=== PATIENT | female | born 1950 | race Caucasian/White ===

== ENCOUNTER 2020-06-07 18:36 | Inpatient (IN) | payer MEDICARE, MEDICAID ==
[2020-06-07 19:29] LABS: #Basophils 0.1 thou/uL (0.0-0.2); #Eosinphils 0.2 thou/uL (0.0-0.7); #Lymphocytes 2.4 thou/uL (1.20-3.40); #Monocytes 1.4 thou/uL (0.11-0.59); #Neutrophils 9.7 thou/uL (1.40-6.50); %Basophils 0.8 % (0.0-1.0); %Eosinophils 1.8 % (0.0-10.0); %Lymphocytes 17.4 % (21.0-51.0); %Monocytes 9.8 % (0.0-10.0); %Neutrophils 70.3 % (42.0-75.0); Mean Corpuscular HGB CONC 32.8 g/dL (32.0-36.0); Mean Corpuscular Hemoglobin 31.8 pg (27.0-31.0); Mean Platelet Volume 8.8 fL (7.4-10.4); Platelet Count 221 thou/uL (130-400); RBC Distribution Width 12.9 % (11.5-14.5); Red Blood Cell (RBC) Count 4.09 mill/uL (4.20-5.40); White Blood Cell (WBC) Count 13.7 thou/uL (4.8-10.8)
[2020-06-07 19:53] LABS: ALT (SGPT) 8 U/L (8-55); AST (SGOT) 10 U/L (5-34); Alkaline Phosphatase 102 U/L (40-110); Anion Gap 13 mmol/L (10-20); BUN (Urea Nitrogen) 14 mg/dL (9.8-20.1); Bilirubin, Total 0.6 mg/dL (0.2-1.2); Calc. Creatinine Clearance 0 mL/min (70-130); Calcium 8.8 mg/dL (7.8-10.44); Carbon Dioxide 26 mmol/L (23-31); Chloride 108 mmol/L (98-107); Estimated GFR-MDRD 84; Globulin 3.7 g/dL (2.4-3.5); Glucose 263 mg/dL (83-110); Potassium 4.2 mmol/L (3.5-5.1); Protein, Total 6.7 g/dL (6.0-8.3); Sodium 143 mmol/L (136-145)
[2020-06-07] MEDS ORDERED: Morphine 4 MG/ML VIAL ONE (19:55)
[2020-06-07] MEDS ORDERED: Ondansetron PF 4 MG/2 ML Vial ONE (19:55)
--- NOTE | 2020-06-07 20:40 | RAD ---
PORTABLE CHEST: 06/07/20 PROVIDED CLINICAL HISTORY: Fall, COVID positive. COMPARISON: 05/12/20. FINDINGS: Evaluation is limited by patient body habitus. The lungs are hypoinflated. Scattered areas of parenchymal opacity are redemonstrated. No pleural flu id or pneumothorax evident. IMPRESSION: Hypoinflated exam. POS: JETT
--- NOTE | 2020-06-07 20:50 | RAD ---
PELVIC RADIOGRAPH: 06/07/20 PROVIDED CLINICAL HISTORY: Pain status post fall. FINDINGS: There is a comminuted, markedly displaced and apex laterally angulated subtrochanteric fracture of th e right proximal femur. No additional fracture is evident. Alignment appears otherwise unremarkable. Conspicuous rectal fecal retention is noted. Multiple age indeterminate compression deformities are seen involving the lumbar spine. IMPRESSION: Comminuted, displaced and angulated subtrochanteric right proximal femoral fracture. POS: JETT
[2020-06-07 22:06] LABS: Bacteria/HPF 4+ HPF (None Seen); Bilirubin Negative (Negative); Blood, Urine Negative (Negative); Clarity Turbid (Clear); Glucose, Urine (Dipstick) Greater than 1000 mg/dL (Negative); Ketone, Urine Negative (Negative); Leukocyte 250 Leu/uL (Negative); Nitrite 1+ (Negative); Protein, Urine (Dipstick) 20 mg/dL (Neg-Trace); RBC/HPF 0-3 HPF (0-3); Specific Gravity, Urine 1.028 (1.002-1.036); Squamous Epithelial 0-3 HPF (0-3)
--- NOTE | 2020-06-07 22:34 | HP ---
This is Orestes Pineda PA-C dictating a report for Tyrel Garcia MD. REQUESTING PHYSICIAN: Babar Marrufo DO. CONSULTATION: Orthopedics, Babar Bee MD HISTORY OF PRESENT ILLNESS: The patient is a 70-year-old woman who was brought from the [facility] after reportedly having a ground level fall on the . She underwent evaluation for fracture at that time and her x-rays were reportedly negative. The daughter has been visiting her over the last 2 days and noticed that she is nonambulatory and she complains a lot of hip pain. The nurse was able to get an x-ray today and it showed a displaced proximal femur fracture, at which time we were asked to evaluate the patient for admission and obtain Orthopedic consultation. So, the daughter reports that she is in her otherwise regular state of health. Her mentation due to her advanced dementia, which she has had since age 55, has left her alert A and O x1. She will follow very basic commands and she is a community shuffler with a walker. ALLERGIES: NONE. CURRENT MEDICATIONS: The daughter reports that the residential has the list of her medicines. PAST MEDICAL HISTORY: The daughter believes she has diabetes, hypertension, and coronary artery disease with no reported blood thinner use. PAST SURGICAL HISTORY: Hysterectomy and knee surgery. SOCIAL HISTORY: Patient resides at the [facility]. There is no history of drug, tobacco, or alcohol use. REVIEW OF SYSTEMS: A 10-point review of systems is negative as otherwise stated. PHYSICAL EXAMINATION: VITAL SIGNS: Blood pressure 124/66, heart rate 85, respirations 19, oxygen saturations 96% on room air, temperature is 97.5. GENERAL: The patient is resting in bed. She is asleep. The daughter reports that she has just been given pain medication. She does open her eyes to loud verbal stimuli, but does not follow my commands. HEENT: Unremarkable. Her head is normocephalic and atraumatic. Eyes are PERRLA bilaterally. The patient does not follow commands to check extraocular motion. Her nose is atraumatic with discharge. No ears are atraumatic with discharge. Oropharynx is clear. NECK: Nontender to the midline. Trachea is midline. CHEST: Clear to auscultation with moderate inspiratory and expiratory effort. HEART: Regular rate and rhythm. ABDOMEN: Soft, flat, nontender with active bowel sounds. PELVIC: Stable with tenderness to palpation to the right hip consistent with her hip fracture. EXTREMITIES: Neurovascularly intact x4. BACK: By report is atraumatic and nontender. LABORATORY FINDINGS: WBC 13.7, hemoglobin 13.0, hematocrit 39.7, platelets 221. Sodium 143, potassium 4.2, chloride 108, CO2 of 26, BUN 14, creatinine 0.69, glucose 263. LFTs are unremarkable. Urinalysis is pending. Coags are pending. RADIOGRAPHS: AP chest x-ray shows no gross abnormality. The exam is done with hypoinflated lungs. AP pelvis shows a markedly displaced angulated comminuted subtrochanteric right proximal femur fracture. ASSESSMENT/PLAN: 1. Status post ground level fall with remote presentation. 2. Right subtrochanteric proximal femur fracture. 3. History of dementia and suspected diabetes, hypertension, and hyperlipidemia. PLAN: To admit the patient to the surgical floor. She will be made n.p.o. after midnight. We will do pulmonary toilet, gastritis and mechanical VTE prophylaxis. Postoperatively, we will begin working with Physical Therapy and evaluate her for ambulation and we will discuss placement at that time. The Emergency Department did notify Dr. Bee and the evaluation, examination, laboratory and radiographic findings will be discussed with Dr. Garcia after this dictation. Job ID: [id number]
[2020-06-08 01:23] VITALS: BMI 36.3
[2020-06-08] MEDS ORDERED: Sodium Chloride 0.9% 1,000 ML IV SCH (01:51)
[2020-06-08] MEDS ORDERED: Dextrose 50% Abboject 50 ML SYRINGE SLOW IVP PRN (01:51)
[2020-06-08] MEDS ORDERED: Ondansetron PF 4 MG/2 ML Vial IVP PRN (01:51)
[2020-06-08] MEDS ORDERED: Dextrose 5% in Water 1,000 ML IV PRN (01:51)
[2020-06-08] MEDS ORDERED: Ondansetron ODT 4 MG TAB PO PRN (01:51)
[2020-06-08] MEDS: cefTRIAXone\\ROCEPHIN 1 GM in Sodium Chloride 0.9% 100 ML IVPB SCH (03:59)
[2020-06-08] MEDS: Morphine 2 MG/ML VIAL SLOW IVP PRN (05:52)
[2020-06-08 05:58] LABS: #Basophils 0.1 thou/uL (0.0-0.2); #Eosinphils 0.5 thou/uL (0.0-0.7); #Lymphocytes 2.9 thou/uL (1.20-3.40); #Monocytes 1.3 thou/uL (0.11-0.59); #Neutrophils 7.7 thou/uL (1.40-6.50); %Basophils 0.8 % (0.0-1.0); %Eosinophils 4.2 % (0.0-10.0); %Lymphocytes 23.4 % (21.0-51.0); %Monocytes 10.2 % (0.0-10.0); %Neutrophils 61.4 % (42.0-75.0); Mean Corpuscular HGB CONC 32.1 g/dL (32.0-36.0); Mean Corpuscular Hemoglobin 31.9 pg (27.0-31.0); Mean Corpuscular Volume 99.2 fL (78.0-98.0); Mean Platelet Volume 9.1 fL (7.4-10.4); Platelet Count 184 thou/uL (130-400); Red Blood Cell (RBC) Count 3.78 mill/uL (4.20-5.40); White Blood Cell (WBC) Count 12.6 thou/uL (4.8-10.8)
[2020-06-08 06:02] LABS: INR-International Normal Ratio 1.2; PTT 25.9 sec (22.9-36.1); Prothrombin Time 15.1 sec (12.0-14.7)
[2020-06-08 06:16] LABS: Anion Gap 13 mmol/L (10-20); BUN (Urea Nitrogen) 13 mg/dL (9.8-20.1); Calc. Creatinine Clearance 126 mL/min (70-130); Calcium 8.4 mg/dL (7.8-10.44); Carbon Dioxide 26 mmol/L (23-31); Chloride 109 mmol/L (98-107); Estimated GFR-MDRD 88; Glucose 164 mg/dL (83-110); Potassium 4.1 mmol/L (3.5-5.1); Sodium 144 mmol/L (136-145)
[2020-06-08] MEDS ORDERED: CEFAZOLIN 2 GM in Premix Bag 1 BAG IVPB SCH (07:45)
--- NOTE | 2020-06-08 08:17 | CON ---
DATE OF CONSULTATION: 06/08/2020 REQUESTING PHYSICIAN: Tyrel Garcia MD BRIEF HISTORY OF PRESENT ILLNESS: The patient is a 70-year-old lady, who was transferred from [facility]. Her history is remarkable for a fall, which she sustained on May 24, 2020. By report, she underwent evaluation for fracture at that time; however, by report, the x-rays were negative. I do not have the ability to review these x-rays as they were done at an outside facility. Over the last two days, her daughter has noticed that she is now a non-ambulator, who is complaining of more and more hip pain and does have shortening of this leg. Followup x-rays were obtained that showed a grossly displaced subtrochanteric femur fracture. As such, she was transferred to [facility] for Trauma admission and Orthopedic consultation. The patient has had advanced dementia since she entered her 50s. She is alert and oriented only to person. PAST MEDICAL HISTORY: Remarkable for severe dementia, diabetes, hypertension, and coronary artery disease. PAST SURGICAL HISTORY: Prior knee surgery as well as hysterectomy. MEDICATIONS: By report of the medication reconciliation form include, 1. Ascorbic acid. 2. Aspirin. 3. Vitamin D. 4. Donepezil. 5. Folic acid. 6. Metoprolol. 7. Mirtazapine. 8. Potassium replacement. ALLERGIES: NONE KNOWN. SOCIAL HISTORY: The patient resides in a care facility in [place]. No history of cigarettes, alcohol, or drugs. REVIEW OF SYSTEMS: Remarkable for a lady, who does not have current shortness of breath or chest pain or cough. By report, no recent fevers or chills. She was a household ambulator with assistance prior to this fall. PHYSICAL EXAMINATION: VITAL SIGNS: She was found to have a temperature of 97.4, heart rate of 95, respiratory rate of 18, and blood pressure of 113/78. HEENT: Atraumatic and normocephalic. HEART: Shows regular rate and rhythm without murmur. LUNGS: Clear to auscultation with good breath sounds. Chest wall is nontender. ABDOMEN: Flat, nontender with normal bowel sounds. PELVIS: Her pelvis is stable to compression, but with manipulation of the right lower extremity, she has clear pain in the groin region. The knee, ankle, and foot on that side appear atraumatic as to her other extremities. LABORATORY DATA: She was found to have a white count of 12.6, a hematocrit of 37.5 and 184,000 platelets. She does have a UA that shows nitrite positive, consistent with possible UTI. X-rays, AP pelvis shows a subtroch femur fracture with significant displacement. ASSESSMENT: A 70-year-old lady, status post fall approximately 2 weeks ago with presumed unappreciated fracture, which is now displaced. PLAN: At this time, the patient is admitted to the Trauma Service. She has been started on antibiotics for her presumed UTI. It is felt that she is optimized for surgical evaluation at this time. Prior to surgery, we will discuss with the patient's daughter risks and benefits of surgery. Risks include, but are not limited to bleeding, infection, nerve injury, DVT, PE, malunion, nonunion, loss of limb or life. Job ID: [id number]
[2020-06-08] MEDS: Famotidine 20 MG TAB PO SCH ×2 (09:45→22:40)
[2020-06-08] MEDS ORDERED: Dexamethasone 20 MG/5 ML VIAL ONE (11:51)
[2020-06-08] MEDS ORDERED: PROPOFOL 200 MG/20 ML VIAL ONE (11:51)
[2020-06-08] MEDS ORDERED: Ondansetron PF 4 MG/2 ML Vial ONE (11:51)
[2020-06-08] MEDS ORDERED: Glycopyrrolate 0.2 MG/ML 5 ML SYRINGE ONE (11:51)
[2020-06-08] MEDS ORDERED: Rocuronium Bromide 10 MG/ML (10ML VIAL) ONE (11:51)
[2020-06-08] MEDS ORDERED: Lidocaine 1% PF 5 ML VIAL ONE (11:51)
[2020-06-08] MEDS ORDERED: Morphine 2 MG/ML VIAL ONE (13:21)
[2020-06-08] MEDS ORDERED: Fentanyl 100 MCG/2 ML VIAL ONE ×2 (13:37→16:24)
[2020-06-08] MEDS ORDERED: Lidocaine 2% Jelly 5 ML TUBE ONE (13:37)
[2020-06-08] MEDS ORDERED: Promethazine HCl 25 MG/ML VIAL SLOW IVP PRN (15:55)
[2020-06-08] MEDS ORDERED: Promethazine HCl 25 MG/ML VIAL IM PRN (15:55)
[2020-06-08] MEDS ORDERED: Ondansetron HCl/PF 4 MG/2 ML Vial IVP PRN (15:55)
--- NOTE | 2020-06-08 16:15 | RAD ---
EXAM: XR Femur Rt 2 View STANDARD DATE: 06/08/2020 12:00 AM INDICATION: ORIF of right femur COMPARISON: Right pelvic radiograph dated June 07, 2020 FINDING: There is placement of a antegrade cephalomedullary device fixating the patient's comminuted subtrochanteric femur fracture. Fracture alignment is near anatomic. The instrumentation projects in the expected position. Total fluoroscopic time was 84.6 seconds. Total exposure was 11.24 mgy. IMPRESSION:Placement of a cephalomedullary device fixating the patient's right subtrochanteric femur fracture as above.
--- NOTE | 2020-06-08 17:48 | PDOC.BPN ---
- Brief Progress Note Encounter Date: 06/08/20 I have discussed the patient with the advanced practice provider and agree with the findings and plan of care annotated in their note dated 06/08/2020. I have examined the patient and reviewed the pertinent radiographic and laboratory findings. Briefly, 70-year-old failed with reported ground-level fall approximately 2 weeks ago. Evidently, she was evaluated by x-ray at that time which was reported to be negative. Given her lack of ambulation and mobility, she was brought to the emergency department where she was noted to have a right subtrochanteric femur fracture. She was also noted to have a urinary tract infection. PLAN: Subtrochanteric femur fracture: Orthopedics consulted. Plans for ORIF later today. Resume home medications postoperatively and initiate chemoprophylaxis
[2020-06-08] MEDS ORDERED: Polyethylene Glycol 3350 17 GM Packet PO PRN (19:39)
[2020-06-08] MEDS ORDERED: FLU VACC QS2020-21(65YR UP)/PF 240 MCG/0.7 ML SYRINGE IM ONE (21:00)
[2020-06-08] MEDS: CEFAZOLIN 2 GM in Premix Bag 1 BAG IVPB SCH (22:39)
[2020-06-08] MEDS: Divalproex Sodium 125 mg Sprinkle Capsule PO SCH (22:40)
[2020-06-08] MEDS: Donepezil HCl 10 MG TAB PO SCH (22:40)
[2020-06-08] MEDS: Mirtazapine 30 MG TAB PO SCH (22:43)
[2020-06-08] MEDS: Insulin Regular 300 UNITS/3 ML VIAL SC PRN (23:03)
[2020-06-09] MEDS: cefTRIAXone\\ROCEPHIN 1 GM in Sodium Chloride 0.9% 100 ML IVPB SCH (03:12)
[2020-06-09] MEDS: Morphine 2 MG/ML VIAL SLOW IVP PRN (03:28)
[2020-06-09] MEDS: CEFAZOLIN 2 GM in Premix Bag 1 BAG IVPB SCH (05:21)
[2020-06-09 05:26] LABS: #Lymphocytes 1.3 thou/uL (1.20-3.40); #Monocytes 0.9 thou/uL (0.11-0.59); #Neutrophils 11.6 thou/uL (1.40-6.50); %Basophils 0.3 % (0.0-1.0); %Eosinophils 0.2 % (0.0-10.0); %Monocytes 6.7 % (0.0-10.0); %Neutrophils 83.7 % (42.0-75.0); Hemoglobin 10.3 g/dL (12.0-16.0); Mean Corpuscular HGB CONC 33.1 g/dL (32.0-36.0); Mean Corpuscular Hemoglobin 32.3 pg (27.0-31.0); Mean Corpuscular Volume 97.4 fL (78.0-98.0); Platelet Count 193 thou/uL (130-400); RBC Distribution Width 12.7 % (11.5-14.5); White Blood Cell (WBC) Count 13.9 thou/uL (4.8-10.8)
[2020-06-09] MEDS: Insulin Regular 300 UNITS/3 ML VIAL SC PRN ×3 (05:40→21:40)
[2020-06-09] MEDS: Folic Acid 1 MG TAB PO SCH (08:35)
[2020-06-09] MEDS: Zinc Sulfate 220 MG CAP PO SCH (08:35)
[2020-06-09] MEDS: Calcium Carbonate 600 MG + Vit D TAB PO SCH (08:35)
[2020-06-09] MEDS: Aspirin 325 MG TAB PO SCH (08:35)
[2020-06-09] MEDS: Ascorbic Acid 500 mg Chewable Tablet PO SCH (08:35)
[2020-06-09] MEDS: Famotidine 20 MG TAB PO SCH ×2 (08:35→20:08)
[2020-06-09] MEDS: Divalproex Sodium 125 mg Sprinkle Capsule PO SCH ×2 (08:36→20:08)
[2020-06-09] MEDS: Potassium Chloride 10 MEQ TAB PO SCH (08:36)
--- NOTE | 2020-06-09 10:16 | OP ---
DATE OF PROCEDURE: 06/08/2020 POSTOPERATIVE DIAGNOSIS: Right subtrochanteric femur fracture. POSTOPERATIVE DIAGNOSIS: Right subtrochanteric femur fracture. PROCEDURE PERFORMED: Stabilization of right subtrochanteric femur fracture with a TFNA nail. ANESTHESIA: General. LEAD DATABASE ADMINISTRATOR: Cory. ESTIMATED BLOOD LOSS: 100 mL. IMPLANTS: Synthes TFNA 14 x 340 mm nail with 85-mm hip screw. COMPLICATIONS: None. DRAINS: None. SPECIMEN: None. OUTCOME: Satisfactory. INDICATIONS FOR PROCEDURE: The patient is a 70-year-old lady, who had a fall approximately 2 weeks prior to this admission with subsequent mild right hip pain. By report, x-rays at that time showed no fracture. However, the patient did go on to develop shortening and some external rotation deformity at the thigh. A followup x-ray done the day prior to this admission demonstrated a subtroch femur fracture with displacement. As such, patient was brought to the hospital and admitted to the Trauma Service with Orthopedic consultation requested. I have discussed with family and the patient risks and benefits of this surgery. At this time, we are going to proceed with intramedullary nail stabilization to provide pain relief and help with nursing care and positioning. Written consent has been obtained. DESCRIPTION OF PROCEDURE: The patient was brought to the operating room and a time-out performed followed by induction of general anesthesia. The patient was then positioned supine on the fracture table with the injured extremity held in longitudinal traction and the contralateral hip held in extension at the hip, so that AP lateral C-arm imaging of the right femur could be obtained. Next, a sterile prep and drape was performed of the right lateral thigh. Next, an incision was made proximal to the tip of the greater trochanter. After skin was sharply incised, dissection was carried down bluntly such that the tip of the trochanter could be palpated. A threaded guidewire was then passed from the tip of the greater trochanter into the proximal femoral canal. This was done under AP and lateral C-arm imaging. Next, a reamer was passed over this threaded guidewire just opened the top of the femur to accept nail placement. At this point, my dental laboratory assistant provided some additional traction of the thigh as well as manipulation of the fracture fragments to allow me to pass the ball-tipped guidewire from this opening aperture of the proximal femur across the fracture and into the femoral shaft distally. Once accomplished, reaming was performed with a 15 mm reamer. This again with my dental laboratory assistant providing reduction at the fracture. Next, a 14 x 340 mm nail was passed across the ball-tipped guidewire extending down towards the distal femoral metaphysis. Once appropriately positioned, a second incision was made distal to the first and the hip screw jig was inserted. A threaded guidewire was then passed from the lateral cortex of the femur, up the femoral neck, into the femoral head approaching a [id number] position. Next, a measurement was taken off this guidewire and it was determined that an 85-mm hip screw would be of appropriate length. The reamer was then passed over this guidewire and then the 85 mm hip screw inserted. Following this, two distal cross-lock screws were inserted using freehand techniques. Completion of this final AP and lateral C-arm images were obtained that showed reasonable reduction of the fracture and good positioning of hardware. The proximal incision was irrigated, then closed in layers with 0 Vicryl deep, followed by 2-0 Vicryl and nadia. The small hip screw and cross-lock incisions were closed with nadia. Xeroform gauze tape dressing was then applied to the lateral thigh and the patient was transferred to recovery room in stable condition. There were no complications. The patient tolerated the procedure well. Job ID: [id number]
[2020-06-09] MEDS: Lidocaine Patch Removal TOP SCH (12:18)
[2020-06-09 12:58] LABS: SARS-CoV-2 MS2 Positive; SARS-CoV-2 N Gene Negative; SARS-CoV-2 S Gene Negative; SARS-CoV-2 by NAA Not Detected (NotDetected); SARS-CoV-2 orf1ab Negative
[2020-06-09] MEDS ORDERED: Acetaminophen 325 MG TAB PO PRN (17:09)
[2020-06-09] MEDS ORDERED: traMADol HCl 50 MG TAB PO PRN (17:09)
[2020-06-09] MEDS: Mirtazapine 30 MG TAB PO SCH (20:08)
[2020-06-09] MEDS: Donepezil HCl 10 MG TAB PO SCH (20:08)
[2020-06-09] MEDS ORDERED: Lidocaine 5% Patch TD SCH (21:00)
--- NOTE | 2020-06-09 21:55 | PRG ---
DATE OF SERVICE: 06/09/2020 HISTORY OF PRESENT ILLNESS: The patient remains on the surgical floor. She is status post ground-level fall with delayed presentation. She sustained a right subtrochanteric femur fracture and she is currently postop day 1 from stabilization of right subtrochanteric femur fracture with TFNA nail. The patient had no issues overnight. Nurses report that her pain is controlled. This is primarily gauged by her facial expression as she has significant advanced dementia and is primarily nonverbal. She will nod occasionally and speak in one-word responses on occasion. PHYSICAL EXAMINATION: VITAL SIGNS: Temperature is 98.2, heart rate 94, blood pressure 106/72, respirations 20, and oxygen saturation 97% on room air. GENERAL: The patient is resting comfortably in bed. She is asleep. She did open her eyes to loud verbal stimuli, but did not respond or follow commands. Her son is at bedside, reports that this is a common occurrence for her. HEENT: Unremarkable. LUNGS: Clear to auscultation bilaterally. HEART: Regular rate and rhythm. ABDOMEN: Soft, nontender with active bowel sounds. EXTREMITIES: Neurovascularly intact x4. LABORATORY FINDINGS: White blood count 13.9, hemoglobin 10.3, hematocrit 31.1, platelets 193. Sodium 144, potassium 4.1, chloride 109, CO2 of 26, BUN 13, creatinine 0.66, glucose 164. There are no radiographs to review this morning. ASSESSMENT/PLAN: 1. Status post ground-level fall with remote presentation. 2. Right subtrochanteric femur fracture status post open reduction and internal fixation, postop day 1. 3. Escherichia coli urinary tract infection, under treatment with ceftriaxone. 4. History of dementia, hypertension, and hyperlipidemia. PLAN: Plan will be to continue supportive care. Encourage physical and occupational therapy as possible and likely transfer patient back to her facility tomorrow. The patient was discussed this morning during rounds. Plan was also discussed with son at bedside. He was in agreement with this. Job ID: [id number]
[2020-06-09] MEDS ORDERED: Nitrofurantoin Monohyd/M-Cryst 100 MG CAP PO SCH (22:00)
[2020-06-10 05:07] LABS: #Basophils 0.1 thou/uL (0.0-0.2); #Eosinphils 0.3 thou/uL (0.0-0.7); #Monocytes 1.1 thou/uL (0.11-0.59); #Neutrophils 9.1 thou/uL (1.40-6.50); %Basophils 0.6 % (0.0-1.0); %Eosinophils 2.5 % (0.0-10.0); %Lymphocytes 22.1 % (21.0-51.0); %Monocytes 7.8 % (0.0-10.0); Hemoglobin 10.9 g/dL (12.0-16.0); Mean Corpuscular HGB CONC 33.1 g/dL (32.0-36.0); Mean Corpuscular Hemoglobin 32.1 pg (27.0-31.0); Mean Corpuscular Volume 97.1 fL (78.0-98.0); Mean Platelet Volume 8.6 fL (7.4-10.4); Platelet Count 194 thou/uL (130-400); RBC Distribution Width 12.9 % (11.5-14.5); Red Blood Cell (RBC) Count 3.39 mill/uL (4.20-5.40); White Blood Cell (WBC) Count 13.6 thou/uL (4.8-10.8)
[2020-06-10] MEDS: Insulin Regular 300 UNITS/3 ML VIAL SC PRN (05:34)
[2020-06-10] MEDS: Aspirin 325 MG TAB PO SCH (08:12)
[2020-06-10] MEDS: Famotidine 20 MG TAB PO SCH (08:12)
[2020-06-10] MEDS: Ascorbic Acid 500 mg Chewable Tablet PO SCH (08:12)
[2020-06-10] MEDS: Zinc Sulfate 220 MG CAP PO SCH (08:12)
[2020-06-10] MEDS: Potassium Chloride 10 MEQ TAB PO SCH (08:12)
[2020-06-10] MEDS: Divalproex Sodium 125 mg Sprinkle Capsule PO SCH (08:12)
[2020-06-10] MEDS: Calcium Carbonate 600 MG + Vit D TAB PO SCH (08:12)
[2020-06-10] MEDS: Folic Acid 1 MG TAB PO SCH (08:13)
[2020-06-10] MEDS: Lidocaine Patch Removal TOP SCH (08:25)
[2020-06-10] MEDS ORDERED: Nitrofurantoin Monohyd/M-Cryst 100 MG CAP PO SCH (09:00)
[2020-06-10 16:49] VITALS: BP 103/62; TEMP 98.2
--- NOTE | 2020-06-11 13:55 | DIS ---
DATE OF ADMISSION: 06/07/2020 DATE OF DISCHARGE: 06/10/2020 ATTENDING: Dr. Garcia. DISCHARGE ATTENDING: Dr. Quintero. CONSULTS: Orthopedic Surgery, Dr. Bee. PROCEDURES: On 06/08/2020, stabilization of right subtrochanteric femur fracture with a TFNA nail. PRIMARY DIAGNOSES: 1. Status post ground level fall with delayed presentation. 2. Right subtrochanteric proximal femur fracture, status post repair. 3. Urinary tract infection on admission. SECONDARY DIAGNOSES: History of dementia, suspected diabetes, hypertension, and hyperlipidemia. DISCHARGE MEDICATIONS: 1. Macrobid 100 mg p.o. b.i.d. for 2 more days. 2. Vitamin C 500 mg p.o. daily. 3. Aspirin 325 p.o. daily. 4. Calcium. 5. Vitamin D3. 6. Calcium carbonate plus vitamin D. 7. Depakote 125 mg p.o. b.i.d. 8. Aricept 10 mg p.o. at bedtime. 9. Pepcid 20 mg p.o. b.i.d. 10. Folic acid 0.4 mg p.o. daily. 11. DuoNeb as needed. 12. Continue lidocaine patch q.12 hours. 13. Namenda 10 mg p.o. b.i.d. 14. Metoprolol 25 mg p.o. at bedtime. 15. Mirtazapine 45 mg p.o. at bedtime. 16. MiraLAX as needed. 17. Potassium 10 mEq p.o. daily. 18. Zinc sulfate 220 mg p.o. daily. 19. Aspirin 650 mg p.o. q.6 hours. No discontinued medications. HISTORY OF PRESENT ILLNESS AND HOSPITAL COURSE: This is a 70-year-old female who was brought to the emergency room from [facility] after having a ground level fall on the . The patient underwent evaluation initially on that day, but x-rays were negative. The patient had been nonambulatory and complaining of a lot of right hip pain. The patient was evaluated again for the hip pain and found to have a displaced proximal femur fracture. The patient remained at her baseline, which is alert and oriented to person only. The patient's pain was well controlled pre and postop. The patient was able to tolerate a regular diet. On the day of discharge, the patient was examined by Dr. Quintero. The patient was awake, alert, and did not appear to be in any pain. The patient's exam was unremarkable including cardiopulmonary and GI exam. The patient's vital signs were stable on the day of discharge. The patient was deemed stable for discharge back to [facility] for continued physical and occupational therapy. DISPOSITION: Stable. DISCHARGE INSTRUCTIONS: 1. Location: [facility]. 2. Diet: Regular diet as tolerated. 3. Activity: Orthopedic limitations, weightbearing as tolerated. 4. Followup: a. Follow up with Orthopedic Surgery, Dr. Bee in 14 days. b. Follow up with primary care physician as needed. 5. Continue Macrobid for 2 more days for urinary tract infection with E coli, which is sensitive. No need to follow up with Trauma Services. Job ID: [id number] [facility]
== END 2020-06-10 18:50 | DRG 481 ==
LOC: ERS 18:36 → SURG B 21:22 → SJJU 06-08 01:31
PROVIDERS: ADMIT Surgery; ATTEND Surgery
PROC: 0QS604Z Reposition Right Upper Femur with Internal Fixation Device, Open Approach (ICD-10-PCS; principal; 2020-06-08)
PROC: 3E0234Z Introduction of Serum, Toxoid and Vaccine into Muscle, Percutaneous Approach (ICD-10-PCS; 2020-06-08)
DX: S72.21XA Displaced subtrochanteric fracture of right femur, initial encounter for closed fracture (principal); N39.0 Urinary tract infection, site not specified; Z20.828 Contact with and (suspected) exposure to other viral communicable diseases; I10 Essential (primary) hypertension; G30.9 Alzheimer's disease, unspecified; F02.80 Dementia in other diseases classified elsewhere, unspecified severity, without behavioral disturbance, psychotic disturbance, mood disturbance, and anxiety; F41.9 Anxiety disorder, unspecified; W18.30XA Fall on same level, unspecified, initial encounter; E11.9 Type 2 diabetes mellitus without complications; E78.5 Hyperlipidemia, unspecified; I25.10 Atherosclerotic heart disease of native coronary artery without angina pectoris; B96.20 Unspecified Escherichia coli [E. coli] as the cause of diseases classified elsewhere; Z23 Encounter for immunization; Z79.82 Long term (current) use of aspirin; Z79.899 Other long term (current) drug therapy
CPT/HCPCS: 36415; 36416; 51701; 71045; 72170; 76000; 80048; 80053; 81003; 81015; 85025; 85610; 85730; 87077; 87086; 87186; 87635; 90471; 90662; 93005; 96374; 96375; C1713; G0008; G0390; J0690; J0696; J1100; J1815; J2270; J2405; J2704; J3010; J3490; U0003

== ENCOUNTER 2021-01-12 18:21 | Inpatient (IN) | payer MEDICARE, MEDICAID ==
[2021-01-12 19:18] LABS: #Basophils 0.1 thou/uL (0.0-0.2); #Eosinphils 0.3 thou/uL (0.0-0.7); #Lymphocytes 2.6 thou/uL (1.20-3.40); #Monocytes 0.8 thou/uL (0.11-0.59); #Neutrophils 4.6 thou/uL (1.40-6.50); %Basophils 1.1 % (0.0-1.0); %Eosinophils 3.1 % (0.0-10.0); %Lymphocytes 31.6 % (21.0-51.0); %Monocytes 9.3 % (0.0-10.0); %Neutrophils 54.9 % (42.0-75.0); Hemoglobin 12.4 g/dL (12.0-16.0); Mean Corpuscular HGB CONC 32.7 g/dL (32.0-36.0); Mean Corpuscular Volume 98.1 fL (78.0-98.0); Platelet Count 216 thou/uL (130-400); RBC Distribution Width 13.4 % (11.5-14.5); Red Blood Cell (RBC) Count 3.87 mill/uL (4.20-5.40); White Blood Cell (WBC) Count 8.3 thou/uL (4.8-10.8)
[2021-01-12] MEDS ORDERED: Enoxaparin Sodium 40 MG/0.4 ML SYRINGE ONE (19:20)
[2021-01-12] MEDS ORDERED: Enoxaparin Sodium 30 MG/0.3 ML SYRINGE ONE (19:20)
[2021-01-12 19:25] LABS: PTT 26.4 sec (22.9-36.1); Prothrombin Time 13.6 sec (12.0-14.7)
[2021-01-12 19:35] LABS: ALT (SGPT) Less than 7 U/L (8-55); AST (SGOT) 10 U/L (5-34); Albumin 3.4 g/dL (3.4-4.8); Alkaline Phosphatase 83 U/L (40-110); Anion Gap 13 mmol/L (10-20); BUN (Urea Nitrogen) 14 mg/dL (9.8-20.1); Bilirubin, Total 0.3 mg/dL (0.2-1.2); Calc. Creatinine Clearance 0 mL/min (70-130); Calcium 9.1 mg/dL (7.8-10.44); Carbon Dioxide 29 mmol/L (23-31); Chloride 107 mmol/L (98-107); Globulin 3.4 g/dL (2.4-3.5); Glucose 101 mg/dL (83-110); Potassium 4.6 mmol/L (3.5-5.1); Protein, Total 6.8 g/dL (5.8-8.1); Sodium 144 mmol/L (136-145)
[2021-01-12] MEDS ORDERED: Enoxaparin Sodium 80 MG/0.8 ML SYRINGE ONE (20:03)
[2021-01-12] MEDS ORDERED: Ondansetron PF 4 MG/2 ML Vial IVP PRN (21:15)
[2021-01-12] MEDS ORDERED: Ondansetron ODT 4 MG TAB SL PRN (21:15)
[2021-01-12] MEDS ORDERED: Acetaminophen 325 MG TAB PO PRN (22:38)
[2021-01-12 23:40] VITALS: BMI 25.7
[2021-01-13 03:12] LABS: SARS-CoV-2 NAA Rapid Test Not Detected (NotDetected)
[2021-01-13 05:38] LABS: #Basophils 0.1 thou/uL (0.0-0.2); #Eosinphils 0.3 thou/uL (0.0-0.7); #Lymphocytes 2.9 thou/uL (1.20-3.40); #Monocytes 0.8 thou/uL (0.11-0.59); #Neutrophils 3.7 thou/uL (1.40-6.50); %Basophils 1.4 % (0.0-1.0); %Eosinophils 4.3 % (0.0-10.0); %Lymphocytes 37.2 % (21.0-51.0); %Monocytes 9.9 % (0.0-10.0); %Neutrophils 47.3 % (42.0-75.0); Hemoglobin 11.4 g/dL (12.0-16.0); Mean Corpuscular HGB CONC 32.2 g/dL (32.0-36.0); Mean Corpuscular Hemoglobin 31.5 pg (27.0-31.0); Mean Corpuscular Volume 97.9 fL (78.0-98.0); Mean Platelet Volume 8.6 fL (7.4-10.4); Platelet Count 192 thou/uL (130-400); RBC Distribution Width 13.3 % (11.5-14.5); White Blood Cell (WBC) Count 7.8 thou/uL (4.8-10.8)
[2021-01-13 05:55] LABS: Anion Gap 11 mmol/L (10-20); BUN (Urea Nitrogen) 12 mg/dL (9.8-20.1); Calc. Creatinine Clearance 86 mL/min (70-130); Calcium 8.6 mg/dL (7.8-10.44); Carbon Dioxide 28 mmol/L (23-31); Chloride 107 mmol/L (98-107); Glucose 90 mg/dL (83-110); Sodium 142 mmol/L (136-145)
[2021-01-13] MEDS: Enoxaparin Sodium 80 MG/0.8 ML SYRINGE SC SCH ×2 (08:06→21:35)
[2021-01-13] MEDS: Divalproex Sodium 125 mg Sprinkle Capsule PO SCH (21:35)
[2021-01-13] MEDS: Donepezil HCl 10 MG TAB PO SCH (21:35)
[2021-01-13] MEDS: Mirtazapine 15 MG TAB PO SCH (21:36)
[2021-01-14] MEDS: Divalproex Sodium 125 mg Sprinkle Capsule PO SCH ×2 (07:26→20:45)
[2021-01-14] MEDS: Enoxaparin Sodium 80 MG/0.8 ML SYRINGE SC SCH (08:20)
[2021-01-14 08:42] LABS: Chloride 108 mmol/L (98-107); Potassium 4.6 mmol/L (3.5-5.1); Sodium 137 mmol/L (136-145)
[2021-01-14 08:54] LABS: ALT (SGPT) Less than 7 U/L (8-55); AST (SGOT) 19 U/L (5-34); Albumin 2.9 g/dL (3.4-4.8); Alkaline Phosphatase 73 U/L (40-110); Anion Gap 14 mmol/L (10-20); BUN (Urea Nitrogen) 8 mg/dL (9.8-20.1); Bilirubin, Total 0.3 mg/dL (0.2-1.2); Calc. Creatinine Clearance 88 mL/min (70-130); Calcium 8.5 mg/dL (7.8-10.44); Carbon Dioxide 21 mmol/L (23-31); Globulin 3.6 g/dL (2.4-3.5); Glucose 92 mg/dL (83-110); Protein, Total 6.5 g/dL (5.8-8.1)
[2021-01-14 13:15] LABS: #Basophils 0.1 thou/uL (0.0-0.2); #Eosinphils 0.1 thou/uL (0.0-0.7); #Lymphocytes 1.4 thou/uL (1.20-3.40); #Monocytes 0.6 thou/uL (0.11-0.59); #Neutrophils 4.2 thou/uL (1.40-6.50); %Eosinophils 1.6 % (0.0-10.0); %Lymphocytes 22.3 % (21.0-51.0); %Monocytes 9.1 % (0.0-10.0); Mean Corpuscular HGB CONC 32.9 g/dL (32.0-36.0); Mean Corpuscular Hemoglobin 32.1 pg (27.0-31.0); Mean Corpuscular Volume 97.5 fL (78.0-98.0); Mean Platelet Volume 8.2 fL (7.4-10.4); Platelet Count 231 thou/uL (130-400); RBC Distribution Width 13.2 % (11.5-14.5); Red Blood Cell (RBC) Count 4.06 mill/uL (4.20-5.40); White Blood Cell (WBC) Count 6.4 thou/uL (4.8-10.8)
[2021-01-14] MEDS: Mirtazapine 15 MG TAB PO SCH (20:45)
[2021-01-14] MEDS: Donepezil HCl 10 MG TAB PO SCH (20:45)
[2021-01-14] MEDS: Apixaban 5 MG TAB PO SCH (20:45)
[2021-01-15 06:18] LABS: #Eosinphils 0.2 thou/uL (0.0-0.7); #Lymphocytes 2.1 thou/uL (1.20-3.40); #Monocytes 0.9 thou/uL (0.11-0.59); #Neutrophils 3.2 thou/uL (1.40-6.50); %Basophils 0.7 % (0.0-1.0); %Eosinophils 3.2 % (0.0-10.0); %Lymphocytes 32.7 % (21.0-51.0); %Monocytes 13.3 % (0.0-10.0); %Neutrophils 50.2 % (42.0-75.0); Hemoglobin 12.6 g/dL (12.0-16.0); Mean Corpuscular HGB CONC 31.6 g/dL (32.0-36.0); Mean Corpuscular Hemoglobin 30.9 pg (27.0-31.0); Mean Corpuscular Volume 97.6 fL (78.0-98.0); Mean Platelet Volume 8.1 fL (7.4-10.4); Platelet Count 224 thou/uL (130-400); RBC Distribution Width 13.2 % (11.5-14.5); Red Blood Cell (RBC) Count 4.07 mill/uL (4.20-5.40); White Blood Cell (WBC) Count 6.4 thou/uL (4.8-10.8)
[2021-01-15 06:36] LABS: Anion Gap 8 mmol/L (10-20); BUN (Urea Nitrogen) 8 mg/dL (9.8-20.1); Calc. Creatinine Clearance 85 mL/min (70-130); Calcium 8.9 mg/dL (7.8-10.44); Carbon Dioxide 29 mmol/L (23-31); Chloride 107 mmol/L (98-107); Glucose 102 mg/dL (83-110); Potassium 3.9 mmol/L (3.5-5.1); Sodium 140 mmol/L (136-145)
[2021-01-15] MEDS: Divalproex Sodium 125 mg Sprinkle Capsule PO SCH ×2 (09:23→21:27)
[2021-01-15] MEDS: Apixaban 5 MG TAB PO SCH ×2 (09:23→21:27)
[2021-01-15] MEDS: Donepezil HCl 10 MG TAB PO SCH (21:28)
[2021-01-15] MEDS: Mirtazapine 15 MG TAB PO SCH (21:30)
[2021-01-16] MEDS: Apixaban 5 MG TAB PO SCH (08:15)
[2021-01-16] MEDS: Divalproex Sodium 125 mg Sprinkle Capsule PO SCH (08:15)
[2021-01-16 13:01] VITALS: BP 99/64; TEMP 97.6
== END 2021-01-16 14:30 | disposition home or self-care (01) | DRG 300 ==
LOC: ERS 18:21 → T4-A 19:55 → OBSVTOIN 01-15 09:48
PROVIDERS: ADMIT Student in an Organized Health Care Education/Training Program; ATTEND Internal Medicine
DX: I82.401 Acute embolism and thrombosis of unspecified deep veins of right lower extremity (principal); G93.49 Other encephalopathy; I10 Essential (primary) hypertension; Z96.642 Presence of left artificial hip joint; G30.9 Alzheimer's disease, unspecified; Z20.822 Contact with and (suspected) exposure to COVID-19; F02.80 Dementia in other diseases classified elsewhere, unspecified severity, without behavioral disturbance, psychotic disturbance, mood disturbance, and anxiety; Z79.82 Long term (current) use of aspirin; Z79.899 Other long term (current) drug therapy
CPT/HCPCS: 36415; 70450; 80048; 80053; 85025; 85610; 85730; 93005; 96372; G0378; J1650; U0002; U0005